=== PATIENT | male | born 1985 | race Two or more races ===

== ENCOUNTER 2022-02-23 18:17 | Emergency (ER) | payer SELFPAY | END 2022-02-23 18:24 | disposition short-term general hospital (02) | LOC: ER 18:17 | DX: S01.81XA Laceration without foreign body of other part of head, initial encounter (principal); T14.8XXA Other injury of unspecified body region, initial encounter; V29.99XA Rider (driver) (passenger) of other motorcycle injured in unspecified traffic accident, initial encounter; Y93.89 Activity, other specified; Y92.89 Other specified places as the place of occurrence of the external cause; Y99.8 Other external cause status | CPT/HCPCS: 31500; 99291 ==